=== PATIENT | female | born 1980 | race Caucasian/White ===

== ENCOUNTER 2017-04-28 07:38 | Day surgery (SDC) | payer BC ==
[2017-04-28 08:06] VITALS: BMI 23.1
[2017-04-28 08:21] VITALS: O2SAT 100
[2017-04-28] MEDS ORDERED: Midazolam 2 MG/2 ML VIAL ONE (08:47)
[2017-04-28] MEDS ORDERED: Propofol 10 mg/ml Inj (20 ML) ONE (08:47)
[2017-04-28 09:18] VITALS: TEMP 97.8
[2017-04-28 09:45] VITALS: PULSE 66
[2017-04-28 09:47] VITALS: RESP 18
[2017-04-28 10:38] VITALS: BP 110/66
== END 2017-04-28 10:35 | disposition home or self-care (01) ==
LOC: C.ENDO 07:38
PROVIDERS: ATTEND Internal Medicine Gastroenterology
DX: R10.13 Epigastric pain (principal); K29.70 Gastritis, unspecified, without bleeding
CPT/HCPCS: 43239; 84703; 88305; J2001; J2250; J2704; J3010